=== PATIENT | female | born 2000 | race Caucasian/White ===

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

== ENCOUNTER 2023-11-03 11:23 | Outpatient (CLI) | payer OTHER ==
[2023-11-03 11:55] LABS: BASOPHILS % (AUTO) 0.4 %; EOSINOPHILS # (AUTO) 0.1 10^3/uL (0.0-0.7); EOSINOPHILS % (AUTO) 0.6 %; HCT - HEMATOCRIT 46.7 % (37.0-47.0); HGB - HEMOGLOBIN 15.4 g/dL (12.0-16.0); LYMPHOCYTES # (AUTO) 2.6 10^3/uL (1.5-3.5); LYMPHOCYTES % (AUTO) 25.6 %; MEAN CORPUSCULAR HEMOGLOBIN 27.8 pg (27.0-31.0); MEAN CORPUSCULAR VOLUME 84.3 fL (81.0-99.0); MEAN PLATELET VOLUME 10.1 fL (7.9-10.8); MONOCYTES # (AUTO) 0.6 10^3/uL (0.0-1.0); NEUTROPHILS # (AUTO) 6.8 10^3/uL (1.5-6.6); NEUTROPHILS % (AUTO) 67.1 %; PLT - PLATELET COUNT 299 10^3/uL (130-450); RED BLOOD COUNT 5.54 10^6/uL (4.20-5.40); RED CELL DISTRIBUTION WIDTH 11.6 % (12.0-15.0); WHITE BLOOD COUNT 10.2 x10^3/uL (4.8-10.8)
[2023-11-03 12:32] LABS: ALBUMIN 4.9 g/dL (3.2-5.5); ALBUMIN/GLOBULIN RATIO 1.6 (1.0-2.2); ALKALINE PHOSPHATASE 88 IU/L (42-121); ALT ALANINE AMINOTRANSFERASE 14 IU/L (10-60); AST ASPARTATE AMINOTRANSFERASE 15 IU/L (10-42); BILIRUBIN,TOTAL 0.7 mg/dL (0.2-1.0); BUN - BLOOD UREA NITROGEN 8 mg/dL (6-20); CALCIUM 10.6 mg/dL (8.5-10.3); CARBON DIOXIDE - CO2 24 mmol/L (21-32); CHLORIDE 104 mmol/L (101-111); CHOL/HDL RATIO 5.2 (<4.4); CHOLESTEROL 194 mg/dL; CREATININE 0.5 mg/dL (0.6-1.3); GFR - MDRD 156 (>89); GLUCOSE 87 mg/dL (74-104); HDL CHOLESTEROL 37 mg/dL; LDL CHOLESTEROL,CALCULATED 142 mg/dL; LDL/HDL RATIO 3.8 (<4.4); POTASSIUM 3.6 mmol/L (3.5-4.5); SODIUM 137 mmol/L (135-145); TRIGLYCERIDES 73 mg/dL (48-352); VLDL CHOLESTEROL 15 mg/dL
[2023-11-03 12:35] LABS: THYROID STIMULATING HORMONE 0.76 uIU/mL (0.34-5.60)
== END 2023-11-03 11:24 | disposition home or self-care (01) ==
LOC: LAB 11:23
PROVIDERS: ATTEND Physician Assistant
DX: R03.0 Elevated blood-pressure reading, without diagnosis of hypertension (principal); Z79.899 Other long term (current) drug therapy; Z13.220 Encounter for screening for lipoid disorders
CPT/HCPCS: 36415; 80053; 80061; 83721; 84443; 85025